=== PATIENT | female | born 1960 | race Caucasian/White ===

== ENCOUNTER 2017-09-08 21:19 | Inpatient (IN) | payer MEDICAID ==
[~2017-09-08] VITALS: Ht 1859 cm; Wt 99.8 kg
--- NOTE | ~2017-09-08 | WRIGHTHP ---
[place], [place] PATIENT HISTORY AND PHYSICAL EXAM NAME: CASI MCRAE UNIT #: [id number] ROOM: 309 DOCTOR: ALEXSANDER CHOPRA MD BIRTHDATE: [birth year] DOS: 09/09/2017 CHIEF COMPLAINT: "I guess I wasn't doing very well at the jail. I kept leaving even though I was not supposed to." HISTORY OF PRESENT ILLNESS: This is a 57-year-old white female who is a resident of The [facility]. The patient was brought to the [facility] Emergency Room due to increased elopement risk. The patient had been leaving the facility and was resisting coming back. In addition, she was wandering in and out of other resident's rooms, taking their belongings, again having a very difficult time to redirect. The patient was having increased mental status changes that included worsening confusion and combativeness. Because of these behaviors, she was admitted to the psychiatric unit to rule out further organic issues to stabilize on medication, returning to the least restrictive environment when psychiatrically stable. PAST MEDICAL HISTORY: Significant for history of brain aneurysm as well as hypertension, GERD, hyperlipidemia, stasis dermatitis, vulvar cancer and allergic rhinitis. MENTAL STATUS: The patient is alert and oriented to self, place, but not time. Mood is somewhat depressed and anxious. There is a constricted range of mood. There is no tito or hypomania. There are no auditory or visual hallucinations. No delusions, no paranoia. Short term memory is poor, otherwise she is intact. DIAGNOSES: Intermittent explosive disorder and rule out major depression; dementia, not otherwise specified. PLAN: I have already started her on Depakote 250 mg 3 times daily to decrease her impulsivity and mood lability. I have also started her on Exelon patch 4.6 mg daily. I will increase this to 9.5. We will engage in individual and araujo milieu activity with the plan to discharge to the least restrictive environment when stable. [place], [place] PATIENT HISTORY AND PHYSICAL EXAM NAME: CASI MCRAE UNIT #: [id number] ROOM: 309 DOCTOR: ALEXSANDER CHOPRA MD BIRTHDATE: [birth year] ALEXSANDER CHOPRA MD CM:HISPHYS:PATIENT HISTORY AND PHYSICAL EXAMINATION 08 ALEXSANDER CHOPRA MD 09/09/17 1009 interface
--- NOTE | ~2017-09-08 | DS ---
[place], [place] DISCHARGE SUMMARY [id number] UNIT #: [id number] ROOM: 311 DOCTOR: ALEXSANDER CHOPRA MD BIRTHDATE: [birth year] DOS: 09/15/2017 CHIEF COMPLAINT: "I guess I wasn't doing very well at the assisted. I kept leaving even though I was not supposed to." HISTORY OF PRESENT ILLNESS: This is a 57-year-old white female who is a resident of The [facility]. The patient was brought to [facility] Emergency Room due to increased agitation and aggression. The patient had been attempting to elope the facility on multiple occasions and resisting coming back. During these episodes, she would become physically combative with staff. Additionally, she has been wandering in and out of other resident's rooms taking their belongings and again being very difficult to redirect. Because of these behaviors, she was deemed a significant risk of harm to self and others and was sent to be evaluated psychiatrically. She is admitted then to the [facility] to rule out organic factors, to stabilize on medication and to engage in individual and araujo milieu activities. PAST MEDICAL HISTORY: Significant for brain aneurysm as well as hypertension, GERD, hyperlipidemia, stasis dermatitis, vulvar cancer and allergic rhinitis. SUMMARY OF HOSPITAL COURSE: The patient was admitted to the unit where she was started on Depakote 250 mg 3 times daily to decrease her impulsivity and mood lability. Additionally, she was started on Exelon patch 4.6 mg a day and maintained on Namenda 10 mg twice a day. Exelon was gradually increased from 4.6 to 9.5 and ultimately to 13.3 mg a day. With the combination of the Depakote, Exelon and Namenda, the patient improved significantly. She no longer attempted to elope the facility, which she had attempted here during her early part of her hospital stay. She attended groups and engaged in individual and araujo milieu activities well. She remained pleasantly confused for the most part stating that she did not live in a assisted, but rather lived in [place] and was ready to return back there. She would redirect, however, and reorient fairly easily. She tolerated the combination of medications well, exhibiting no sedation, somnolence or any other side effects. The patient had improved sufficiently by September 15 to return back to The [facility]. MENTAL STATUS AT DISCHARGE: The patient was alert and oriented to person, possibly place, but not time. Mood did seem to be trending towards euthymia. Affect was much more appropriate. There was no tito or hypomania. There were no gross psychotic symptoms noted. Short-term memory was poor, otherwise she was intact. FINAL DIAGNOSES: Intermittent explosive disorder; major depression, recurrent; and dementia, not otherwise specified. PLAN: The patient will return to The [facility]. She will follow up with the facility psychiatrist. Her prescriptions have been E-scribed to [facility]. The patient was discharged in a stable medical and psychiatric condition. [place], [place] DISCHARGE SUMMARY NAME: CASI MCRAE [facility] #: [id number] UNIT #: [id number] ROOM: [facility] DOCTOR: ALEXSANDER CHOPRA MD BIRTHDATE: [birth year] ALEXSANDER CHOPRA MD CM:DISCHARG 6 ALEXSANDER CHOPRA MD 09/15/17956 interface
--- NOTE | ~2017-09-08 | PR ---
[place], [place] PROGRESS NOTE NAME: CASI MCRAE UNIT #: [id number] ROOM: 311 DOCTOR: ALEXSANDER CHOPRA MD BIRTHDATE: [birth year] DOS: 09/14/2017 CHIEF COMPLAINT: "I got better this time." SUMMARY OF THE VISIT: The patient was interviewed in the dining area where she was eating her breakfast. She did remark that she had butter on her toast as opposed to yesterday. She engaged readily in conversation. For the most part, she continues to be bright and pleasant and cooperative. She has not made any attempts to elope this facility for sometime now. She has been compliant with her medicines. She remains grossly confused though, stating that she came here from [place] and does not remember ever being in a penitentiary or assisted living. MENTAL STATUS: She is alert and oriented to person, place and that she realizes she is in the hospital, but not time. Mood seems to be euthymic. Affect is trending towards being bright and pleasant. Speech rate and pattern is within normal limits. There is no tito or hypomania. There are no overt psychotic symptoms. She does process slowly and short term memory remains poor. PLAN: I will maximize out the Namenda dose to 10 mg b.i.d. while it augments the effectiveness of the Exelon patch, continue to engage in individual and araujo milieu activity, returning to the least restrictive environment when stable. ALEXSANDER CHOPRA MD CM:PNTRANS ALEXSANDER CHOPRA MD 09/14/1751 interface
--- NOTE | ~2017-09-08 | PR ---
[place], [place] PROGRESS NOTE NAME: CASI MCRAE UNIT #: [id number] ROOM: 311 DOCTOR: ALEXSANDER CHOPRA MD BIRTHDATE: [birth year] DOS: 09/13/2017 CHIEF COMPLAINT: "I would like some more butter please." SUMMARY OF THE VISIT: The patient was interviewed as she sat by herself at the breakfast table. She was eating her breakfast peacefully. She engaged readily in conversation. When asked where she came prior to being admitted to the hospital, she reported [place] and that she came from her own apartment. She denied ever being in a long-term care facility. She was pleasant; however, she voiced no other complaints other than requesting more butter for her toast. She seemed engaging. She was not asking to leave. She was not agitated like she had been upon admission. MENTAL STATUS: She is alert and oriented with significant time gaps. Mood does seem to be strongly trending towards euthymia. Affect is much more appropriate. There is no tito or hypomania. There are no overt auditory or visual hallucinations. No delusions, no paranoia. Short term memory remains exceedingly poor. PLAN: I will continue to titrate the Namenda upwards, bringing the dose from 5 mg twice a day to 10 mg in the morning and 5 mg at bedtime. continue to engage in individual and araujo milieu activity with the plan to return to the least restrictive environment when psychiatrically stable. ALEXSANDER CHOPRA MD CM:PNTRANS 7 ALEXSANDER CHOPRA MD 09/13/1758 interface
--- NOTE | ~2017-09-08 | CON ---
[place], [place] REPORT OF CONSULTATION NAME: CASI MCRAE UNIT #: [id number] ROOM: 311 DOCTOR: BLANCO OLVERA ED.D (NATHANAEL) BIRTHDATE: [birth year] DOS: 09/12/2017 HISTORY OF PRESENT ILLNESS: The patient is a 57-year-old female referred by Dr. Ceja for competency evaluation. At the present time, this patient is on the [facility] at [facility]. She states she is and has 2 children. She has recently been a resident at [facility] in [place], [place]. MEDICAL HISTORY: Pertinent for brain aneurysm, hypertension, GERD and vulvar cancer along with intermittent explosive disorder. PSYCHIATRIC MEDICATIONS: Include Namenda, Depakote, and Exelon. 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 She has had significant cognitive issues since her brain aneurysm surgery. PHYSICAL EXAMINATION: This patient could not tell me where she was and she did not know how old was. She stated she is maybe 58 or maybe 68. She states she is not suicidal at this time. She has no idea if she was in the hospital. She could not tell me where she lived and she is clearly not competent to make informed healthcare decisions. Apparently, she has a healthcare power of associate attorney and in my opinion, all healthcare decision should be made by her healthcare power of associate attorney at this time because she is clearly not competent DIAGNOSIS: Intermittent explosive disorder. Thank you very much for this consult. BLANCO OLVERA ED.D CM:CONSTR:REPORT OF CONSULTATION 1642 09/13/17 0518 interface ALEXSANDER CEJA MD
--- NOTE | ~2017-09-08 | PR ---
[place], [place] PROGRESS NOTE NAME: CASI MCRAE UNIT #: [id number] ROOM: 311 DOCTOR: ALEXSANDER CHOPRA MD BIRTHDATE: [birth year] DOS: 09/12/2017 CHIEF COMPLAINT: "I am not sleeping at all, doctor." SUMMARY OF THE VISIT: The patient was interviewed in the dining area where she was sitting with female peers. She reported that she is having significant problems sleeping that she is having trouble falling asleep, staying asleep, and she is waking up early and unable to go back to bed. She also for the first time reported that she has been feeling very depressed for sometime and finds herself sad for no reason at all. She at times will admit to crying spells. Her appetite is fluctuated as well. Otherwise, she is pleasant and cooperative and was not asking to leave. The agitation that was so prominent upon admission seems to have dissipated. MENTAL STATUS: She is alert and oriented with significant time gaps. Mood does seem to be somewhat depressed. Affect is flat, blunted, and constricted. There was no symptom suggestive of tito or hypomania. There are no overt auditory or visual hallucinations. No delusions, no paranoia. Short term memory is very poor and she at times repeats herself. PLAN: I will go ahead and maximize the dose of Exelon patch, bringing it from 9.5-13.3 mg daily. Given the depressive symptoms that are so prominent, I will add Remeron 15 mg at bedtime. Continue to engage in individual and araujo milieu activity with the plan to return to the least restrictive environment when psychiatrically stable. ALEXSANDER CHOPRA MD CM:PNTRANS [id number] ALEXSANDER CHOPRA MD 09/12/17914 interface
--- NOTE | ~2017-09-08 | PR ---
[place], [place] PROGRESS NOTE NAME: CASI MCRAE UNIT #: [id number] ROOM: 309 DOCTOR: ALEXSANDER CHOPRA MD BIRTHDATE: [birth year] DOS: 09/10/2017 CHIEF COMPLAINT: "I don't know what I'm doing here, can I go home soon." SUMMARY OF THE VISIT: The patient was interviewed as she rested quietly in bed. She awoke and engaged readily in conversation. She voiced no complaint. She was rather vague when her responses they tended to be short and simple. She does seem to be somewhat disoriented. She is uncertain why she is here, how long she has been here. She voiced no other complaints. She is tolerating the current medication regimen well. MENTAL STATUS: She is alert and oriented to person, possibly placed, but not time. Mood does seem to be more euthymic. Affect is more appropriate. Responses as mentioned previously are short and simple at times inappropriate. There was no mood lability, no agitation, no aggression. Short-term memory is exceedingly poor. PLAN: I will maintain her current dose of Exelon patch, but plan to increase this in the future. I will now augment with Namenda 5 mg at bedtime and target increasing the dose as needed and as tolerated. We will check a valproic acid level in the a.m. We will continue to engage in individual and araujo milieu activity, returning to the least restrictive environment when stable. ALEXSANDER CHOPRA MD CM:PNTRANS [id number] ALEXSANDER CHOPRA MD 09/10/17 0910 interface
--- NOTE | ~2017-09-08 | PR ---
[place], [place] PROGRESS NOTE NAME: CASI MCRAE UNIT #: [id number] ROOM: 311 DOCTOR: ALEXSANDER CHOPRA MD BIRTHDATE: [birth year] DOS: 09/11/2017 CHIEF COMPLAINT: "I am okay, they have been treating me well." SUMMARY OF THE VISIT: The patient was interviewed in her bedroom. She was puttering and getting ready for the day. She reports that she slept well, ate well. She is anxious to be able to leave and questions when that will occur. Otherwise, she reports that everything is going well here and she denies any issues. MENTAL STATUS: She is alert and oriented to self, place, not time. Mood does seem to be more euthymic. Affect is more appropriate. Her responses still tend to be very short and simple, at times vague. There is no hypomania or tito. There are no overt auditory or visual hallucinations. No delusions, no paranoia. Short term memory has gaps, otherwise she is intact. PLAN: I will increase Namenda to 5 mg b.i.d., augmenting the effectiveness of the Exelon patch, which I will maintain at 9.5, but plan to ultimately increased to 13.3 mg a day, continue to engage in individual and araujo milieu activity, returning to the least restrictive environment when psychiatrically stable. ALEXSANDER CHOPRA MD CM:PNTRANS 4 ALEXSANDER CHOPRA MD 09/11/17925 interface
[~2017-09-08 21:19] MED LIST: ACETAMINOPHEN325 M3 PO; ASPIRIN81 M1 PO; ATORVASTATIN CA20 M1 PO; CLARITIN10 MG PO; HYDROCHLOROTHIA25 M1 PO; LASIX20 MG PO; LEXAPRO5 M1 PO; LISINOPRIL-HCT1 EACH PO; MELATONIN3 MG PO; OMEPRAZOLE20 M2 PO
[2017-09-08 21:24] VITALS: BP 140/78
[2017-09-08 21:39] LABS: BASO # 0.1 10*3/uL (0.0-0.1); BASO % 0.7 % (0.0-1.0); EOS # 0.4 10*3/uL (0.0-0.4); EOS % 3.3 % (1.0-4.0); HEMATOCRIT 40.2 % (37.0-47.0); HEMOGLOBIN 12.4 g/dl (12.0-16.0); LYMPH # 2.8 10*3/uL (1.3-4.4); LYMPH % 22.6 % (27.0-41.0); MEAN CELL VOLUME 79.4 fl (81.0-99.0); MEAN CORPUSCULAR HGB 24.5 pg (27.0-31.0); MEAN CORPUSCULAR HGB CONC 30.8 g/dl (33.0-37.0); MEAN PLATELET VOLUME 10.4 fl (9.6-12.3); MONO # 1.1 10*3/uL (0.1-1.0); MONO % 8.9 % (3.0-9.0); NEUT % 64.3 % (47.0-73.0); PLATELET COUNT AUTOMATED 373 10*3/uL (130-400); RED BLOOD COUNT 5.06 10*6/uL (4.10-5.10); RED CELL DISTRI WIDTH 14.9 % (0-14.5); WHITE BLOOD COUNT 12.5 10*3/uL (4.8-10.8)
[2017-09-08 21:55] LABS: ACETAMINOPHEN (TYLENOL) < 2.0 ug/ml (10-30); ALBUMIN 3.6 gm/dl (3.1-4.5); ALKALINE PHOSPHATASE 101 U/L (45-117); BUN 8 mg/dl (7-24); CHLORIDE 98 mmol/L (98-107); ETHYL ALCOHOL < 3.0 mg/dl (<3); POTASSIUM 3.7 mmol/L (3.5-5.1); SGOT/AST 31 IU/L (3-35); SGPT/ALT 50 U/L (12-78); SODIUM 136 mmol/L (136-145); TOTAL PROTEIN 7.4 gm/dL (6.4-8.2)
[2017-09-08 23:33] LABS: BILIRUBIN NEGATIVE (NEGATIVE); BLOOD NEGATIVE (NEGATIVE); CLARITY CLEAR (CLEAR); COLOR YELLOW (YELLOW); GLUCOSE NEGATIVE (NEGATIVE); KETONE NEGATIVE (NEGATIVE); LEUKO ESTERASE NEGATIVE (NEGATIVE); NITRITE NEGATIVE (NEGATIVE); UROBILINOGEN 0.2 E.U./dl (0.2-1.0)
[2017-09-08 23:43] LABS: RBC 0-2 rbc/hpf (0-2); URINE AMPHETAMINES < 1000 (1000ng/ml); URINE BARBITURATES < 200 (200ng/ml); URINE BENZODIAZEPINES < 200 (200ng/ml); URINE CANNABINOIDS (THC) < 50 (50ng/ml); URINE COCAINE < 300 (300ng/ml); URINE METHADONE < 300 (300ng/ml); URINE OPIATES < 300 (300ng/ml); WBC 0-2 wbc/hpf (0-5)
[2017-09-08 23:44] LABS: URINE PHENCYCLIDINE < 25 (25ng/ml)
[2017-09-09 00:02] VITALS: BP 136/78
[2017-09-09 01:24] VITALS: BP 149/89
[2017-09-09 01:36] VITALS: BP 149/89
[2017-09-09 07:40] LABS: THYROID STIM HORMONE (HS) 1.25 uIU/ml (0.358-4.75)
[2017-09-09 07:55] VITALS: BP 147/88
[2017-09-09 08:05] LABS: VITAMIN D, 25-HYDROXY 13.7 ng/mL (30-100)
[2017-09-09 20:00] VITALS: BP 127/74
[2017-09-10 08:01] VITALS: BP 136/74
[2017-09-10 20:07] VITALS: BP 125/78
[2017-09-11 07:45] VITALS: BP 132/89
[2017-09-11 20:00] VITALS: BP 136/88
[2017-09-12 07:47] VITALS: BP 139/87
[2017-09-12 20:00] VITALS: BP 134/75
[2017-09-13 08:05] VITALS: BP 139/82
[2017-09-13 21:34] VITALS: BP 139/61
[2017-09-14 07:55] VITALS: BP 136/80
[2017-09-14 21:08] VITALS: BP 139/83
[2017-09-15 07:53] VITALS: BP 151/61
[2017-09-15] MEDS ORDERED: Vitamin D PO (09:39)
[2017-09-15] MEDS ORDERED: DIVALPROEX SOD125 MG PO (09:39)
[2017-09-15] MEDS ORDERED: MEMANTINE HCL10 MG PO (09:39)
[2017-09-15] MEDS ORDERED: MIRTAZAPINE15 M2 PO (09:39)
[2017-09-15] MEDS ORDERED: EXELON13.3 MG/21 T (09:39)
== END 2017-09-15 13:11 | DRG 883 ==
LOC: ED 21:19 → 3N 09-09 00:43
PROVIDERS: Emergency Medicine Emergency Medical Services; Psychiatry & Neurology Psychiatry
DX: F63.81 Intermittent explosive disorder (principal); F03.91 Unspecified dementia, unspecified severity, with behavioral disturbance; G93.89 Other specified disorders of brain; F33.9 Major depressive disorder, recurrent, unspecified; E78.5 Hyperlipidemia, unspecified; I10 Essential (primary) hypertension; K21.9 Gastro-esophageal reflux disease without esophagitis; E78.00 Pure hypercholesterolemia, unspecified; J30.2 Other seasonal allergic rhinitis; I87.2 Venous insufficiency (chronic) (peripheral); D18.1 Lymphangioma, any site; Z82.61 Family history of arthritis; I69.318 Other symptoms and signs involving cognitive functions following cerebral infarction; Z85.89 Personal history of malignant neoplasm of other organs and systems; Z79.899 Other long term (current) drug therapy; Z79.82 Long term (current) use of aspirin; Z72.0 Tobacco use; Z71.6 Tobacco abuse counseling